=== PATIENT | female | born 1935 | race Caucasian/White ===

== ENCOUNTER 2017-06-05 14:10 | Outpatient (RCR) | payer MEDICARE, OTHER | END 2017-07-08 14:32 | disposition home or self-care (01) | PROVIDERS: ATTEND Specialist | DX: R49.0 Dysphonia (principal); K21.9 Gastro-esophageal reflux disease without esophagitis; I10 Essential (primary) hypertension; M81.0 Age-related osteoporosis without current pathological fracture; Z85.038 Personal history of other malignant neoplasm of large intestine ==